=== PATIENT | female | born 1970 | race Caucasian/White ===

== ENCOUNTER 2024-09-09 13:54 | Emergency (ER) | payer SELFPAY ==
[~2024-09-09] VITALS: Ht 165.1 cm; Wt 61.2 kg
[2024-09-09] MEDS: LIDOCAINE HCL 1% 20 ML VIAL INJ ONE (15:05)
--- NOTE | 2024-09-09 15:53 | HMCIMG ---
EXAM: CR right ankle, 3 View. CLINICAL HISTORY: r/o fb COMPARISON: None provided. FINDINGS: BONES: No acute fracture or aggressive appearing osseous lesion. JOINTS: The joint spaces appear within normal limits. No dislocation. No radiographic evidence of a joint effusion. SOFT TISSUES: Posterior soft tissue laceration. Abnormal soft tissue attenuation stranding pre-Achilles fat pad le. IMPRESSION: 1. No acute osseous injury. 2. Posterior soft tissue laceration with pre-Achilles fat pad stranding. Achilles tendon pathology of concern /[place]
[2024-09-09] MEDS ORDERED: SULF1TAB42 PO (16:19)
--- NOTE | 2024-09-09 16:21 | ERN ---
General Chief Complaint: Laceration/Avulsion Stated Complaint: LACERATION TO LEFT ANKLE Time Seen by MD: 13:58 Time Seen by Midlevel: 13:58 Source: patient History of Present Illness Initial Comments Patient is a 54-year-old female presenting to the emergency department for evaluation of a laceration to her left ankle that occurred just prior to arrival. Tetanus vaccination is not up-to-date. Allergies: Coded Allergies: Penicillins (Unverified Allergy, Unknown, 09/09/24) Home Meds Active Scripts Sulfamethoxazole/Trimethoprim (Bactrim Ds Tablet) 800 Mg-160 Mg Tablet, 1 TAB PO BID for 7 Days, #14 TAB 0 Refills Prov:ALEKSANDRA STARR 09/09/24 Past Medical History Past Medical History: No Pertinent History Past Surgical History: None ROS Dictation CONSTITUTIONAL: Negative except for HPI HEAD/FACE: Negative except for HPI EENT: Negative except for HPI RESPIRATORY: Negative except for HPI GASTROINTESTINAL/ABDOMINAL: Negative except for HPI GENITOURINARY: Negative except for HPI MUSCULOSKELETAL: Negative except for HPI INTEGUMENTARY: Negative except for HPI NEUROLOGICAL/PSYCH: Negative except for HPI HEMATOLOGIC/LYMPHATIC: Negative except for HPI All Systems Negative, Except as noted above. 13 point review of systems assessed and all negative except for above. Physical Exam Physical Exam Dictation PHYSICAL EXAM: GENERAL: alert,, awake oriented x 3 HEENT: EOMI, Sclera non icteric, moist mucosa NECK: Supple, no JVD, trachea midline LUNGS: Clear breath sounds bilaterally. No wheezes HEART: Regular rate and rhythm. Normal S1 and S2, without murmurs ABD: Abdomen soft, nontender. Bowel sounds present EXT: No clubbing or cyanosis, NEURO: Alert and oriented to person, follows commands SKIN: 15cm linear laceration extending from the medial malleolus through the achiles tendon and ending in the lateral malleolus MDM MDM: 54-year-old female presenting to the ER with a left ankle laceration. On examination in the laceration extends from the medial to lateral malleolus any U shaped pattern going through the Achilles tendon. However the Achilles tendon is intact. Patient has full range motion of her left ankle. X-ray was performed which does not reveal any acute fracture or retained foreign body. Tetanus vaccination was administered in the emergency department. Laceration was successfully repaired with 16 simple interrupted sutures. Patient was discharged home with oral antibiotics for further treatment. Strict return precautions given Differential diagnosis: Laceration, tendon repair, retained foreign body There are no social concerns with this patient. Prescription drug management Prescriptions will include: Medical management and examination interpretation discussions were had by me with other qualified healthcare professionals as indicated for the patient's care. ED Course Orders Procedure Category Date Status Time *Nursing CPOE 09/09/24 Transmitted Communication: 14:02 Ankle Comp 3vws Lt RAD 09/09/24 Resulted 14:19 Tetanus,Diphtheria PHA 09/09/24 Complete Tox [Adult] (Diphther 14:30 Laceration Tray Set CPOE 09/09/24 Transmitted Up (Er) 14:19 Lidocaine Hcl 1% 20ml PHA 09/09/24 Complete Vial (Lidocaine Hc 14:30 Crutches W/Training CPOE 09/09/24 Transmitted (Er) 16:21 Current Medications Medications (Trade) Dose Ordered Sig/Kael Route PRN Reason Start Time Stop Time Status Last Admin Dose Admin Lidocaine HCl (Lidocaine HCl 1% 20ml Vial) ONCE ONCE INJ 09/09/24 14:30 09/09/24 14:31 DC 09/09/24 15:05 Tetanus/ Diphtheria Toxoids Adsorbed (DiphthERIA-teTANUS TOXOID [ADULT]/ DECAVAC) 0.5 ml ONCE ONCE IM 09/09/24 14:30 09/09/24 14:31 DC 09/09/24 15:07 Vital Signs Date Time Temp Pulse Resp B/P (MAP) Pulse Ox O2 Delivery O2 Flow Rate FiO2 09/09/24 16:31 98.6 82 16 142/76 96 Room Air* 0 21 09/09/24 14:11 98.6 88 16 167/97 96 Room Air* 0 09/09/24 13:56 98.6 88 16 167/97 96 Room Air 0 Procedure Dictation Procedure Name: Laceration Repair Indication: Reduce risk of infection Location: Left ankle,15 cm in length Pre-Procedure Diagnosis: Laceration Post-Procedure Diagnosis: Repaired Laceration Informed consent was obtained before procedure started. PROCEDURE: The appropriate timeout was taken. The area was prepped and draped in the usual sterile fashion. Local anesthesia was achieved using 10cc of Lidocaine 1% without epinephrine. The wound was copiously irrigated. 16 3-0 Ethilon simple interrupted sutures were placed. Estimated blood loss was less than 0.5 mL. A dressing was applied to the area and anticipatory guidance, as well as standard post-procedure care, was explained. Return precautions are given. The patient tolerated the procedure well without complications. Follow-up visit set for suture removal and evaluation of the laceration. DX & DISP Disposition: Discharge Departure Impression: Primary Impression: Laceration of left ankle Condition: Stable Scripts Sulfamethoxazole/Trimethoprim (Bactrim Ds Tablet) 800 Mg-160 Mg Tablet 1 TAB PO BID for 7 Days, #14 TAB 0 Refills Prov: ALEKSANDRA STARR 09/09/24 Additional Instructions: Your laceration was successfully repaired with 16 sutures. These will need to be removed in 10 days. If you notice any signs of infection please return to the ER for further evaluation. I have given you an oral antibiotic for outpatie nt management. Please follow up with your primary care doctor in 2-3 days for repeat evaluation. Referrals: MOISÉS GALVEZ MD (PCP) I have reviewed the case, and I agree with, Diagnosis and Plan I performed the substantive portion of the visit. I have reviewed and personally made and approve the management plan that is documented in the note by myself or the STUART. I acknowledge for responsibility for the patient's management plan. ALEKSANDRA STARR Sep 09, 2024 16:21
--- NOTE | 2024-09-09 16:23 | NUR ---
15 CM LAC REPAIRED W/ 16 STITCHES, WOUND DRESSED, PT TOLERATED WELL. PT EDUCATED ON CRUTCH USE
[2024-09-09 16:31] VITALS: BP 142/76; PULSE 82; RESP 16; TEMP 98.6; O2SAT 96
== END 2024-09-09 16:45 | disposition home or self-care (01) ==
LOC: EDH 13:54
DX: S91.012A Laceration without foreign body, left ankle, initial encounter (principal); Z88.0 Allergy status to penicillin; Z79.899 Other long term (current) drug therapy; X58.XXXA Exposure to other specified factors, initial encounter; Y93.89 Activity, other specified; Y92.89 Other specified places as the place of occurrence of the external cause; Y99.8 Other external cause status
CPT/HCPCS: 12005; 73610; 90471; 90714; 99283

== ENCOUNTER 2024-09-23 16:06 | Emergency (ER) | payer SELFPAY ==
[~2024-09-23] VITALS: Ht 165.1 cm; Wt 59.0 kg
[~2024-09-23 16:06] MED LIST: SULF1TAB42 PO
--- NOTE | 2024-09-23 18:09 | ERN ---
ED Note History of Present Illness Stated Complaint: SUTURE REMOVAL Chief Complaint: Suture/Staple Removal Time Seen by MD: 17:19 Time Seen by Midlevel: 17:19 Dictation: The patient is a 54-year-old female with history of left surgery who presents to the emergency department for suture removal. Patient had 16 sutures done to posterior left ankle on 09/09/2024. Patient denies any fever any complications. Allergies: Coded Allergies: Penicillins (Unverified Allergy, Unknown, 09/09/24) Home Meds Active Scripts Sulfamethoxazole/Trimethoprim (Bactrim Ds Tablet) 800 Mg-160 Mg Tablet, 1 TAB PO BID for 7 Days, #14 TAB 0 Refills Prov:ALEKSANDRA STARR 09/09/24 Past Medical History Past Medical History: No Pertinent History Additional Past Medical Hx: denies pmhx Surgical History: Other Surgical History Other: lt elbow sx RN Note Reviewed/Agreed w/PFSH: Yes Review of System Dictation Constitutional: Negative for fever,chills, and weight loss Eyes: Negative for injury, pain,redness, and discharge ENT: Negative for injury,pain or swelling Cardiovascular: Negative for chest pain, palpitations, and edema Respiratory: Negative for shortness of breath, cough, and wheezing, Abdomen/GI: Negative for abdominal pain, nausea, vomiting, diarrhea, and constipation Back: Negative for injury and pain : Negative for injury, bleeding and discharge MS/Extremity: Negative for injury and deformity Skin: Negative for rash, and discoloration positive for laceration Neuro: Negative for headache, weakness, numbness, tingling, and seizure Psych: Negative for suicide ideation, homicidal ideation, and hallucinations Initial Vital Sign VS Vital Signs Date Time Temp Pulse Resp B/P (MAP) Pulse Ox O2 Delivery O2 Flow Rate FiO2 09/23/24 16:09 98.4 106 16 160/99 97 Room Air 0 09/23/24 16:12 21 Physical Exam Dictation Vital Signs reviewed General Appearance: Alert, oriented x 3, no acute distress, well developed, nourished. Head and Face: non-traumatic. Eyes: PERRL, pink conjunctivas, eyelid no trauma, anterior chamber with arcus senilis. Ears: Pinnas intact and no signs of trauma or erythema ear canals clear and no discharge TM no erythema Nose: No discharge, no bleeding. Oropharynx: Mouth normal, tongue pink. pharynx clear,no erythema, tonsils no exudates, no abscesses noted, mucous membrane moist Neck: Supple, non-tender, no thyromegaly, no masses, no JVD, no bruits Breast:Deferred Chest:No tenderness, no crepitus, no paradoxical movement, no retractions Lungs:Clear, well-ventilated, symmetric, no rales, no wheezing, no rhonchi, no stridor, good breath sounds bilaterally Heart: Regular rate, regular rhythm, no murmur, no gallops Vascular: no peripheral edema, Abdomen: Soft, positive bowel sounds, nondistended, no guarding, nontender, no rebound, no masses no hepatomegaly, no splenomegaly, no Adamson's sign, no hernias. Rectal: Deferred Genital: Deferred Neurological: Normal speech, motor function intact, sensory function intact Musculoskeletal: Neck nontender, full range of motion, back nontender, full range of motion, Extremities: nontender, full range of motion Skin: Color pink, dry, no turgor, no rash, no abrasions, no contusions. Mild swelling and erythema to left ankle, [address] Lymphatic: Deferred Results (Laboratory/Radiology) Labs Reviewed?: Yes ED Course ED Course Vital Signs Date Time Temp Pulse Resp B/P (MAP) Pulse Ox O2 Delivery O2 Flow Rate FiO2 09/23/24 16:12 98.4 106 16 160/99 97 Room Air* 0 21 09/23/24 16:09 98.4 106 16 160/99 97 Room Air 0 Medical Decision Making MDM The patient is a 54-year-old female with history of left surgery who presents to the emergency department for suture removal. Patient had 16 sutures done to posterior left ankle on 09/09/2024. Patient denies any fever any complications. Sutures were removed. Patient tolerated procedure well. No signs of abnormal drainage. Patient was stable vital signs we will be discharged to follow up with PCP. Differential diagnosis: Cellulitis, suture removal encounter, laceration Need for hospitalization: Patient does not meet criteria for hospitalization. There are no social concerns with this patient. DX & DISP Disposition: Discharge Departure Impression: Primary Impression: Encounter for removal of sutures Condition: Stable Additional Instructions: Please follow up with your primary doctor in 1-2 days. Continue to keep wound clean and dry. FOLLOW-UP WITH PRIMARY CARE PROVIDER IN 1 TO 2 DAYS. TAKE MEDICATIONS DIRECTED HERE IN THE EMERGENCY ROOM. OKAY TO CONTINUE HOME MEDICATIONS UNLESS OTHERWISE DISCUSSED DURING YOUR VISIT IN THE EMERGENCY ROOM TODAY. RETURN TO YOUR NEAREST EMERGENCY ROOM IF SYMPTOMS WORSEN OR IF THERE IS NO IMPROVEMENT. CALL 911 IF YOU NEED IMMEDIATE ASSISTANCE. TAKE TYLENOL [id number] NEEDED AND IF NO CONTRAINDICATIONS ARE PRESENT. INCREASE ORAL HYDRATION. A WOUND CULTURE OR URINE CULTURE WAS ORDERED HERE IN THE EMERGENCY ROOM DEPARTMENT PLEASE FOLLOW-UP WITH PRIMARY CARE PROVIDER AND ADVISE THEM TO GET REPEAT PORTS FROM OUR FACILITY. IF YOU HAD ANY SAM WRAP/SPLINTS THAT WERE APPLIED HERE, PLEASE DO NOT REMOVE THEM UNTIL YOU SEE YOUR PRIMARY CARE OR SPECIALTY. Referrals: SELF,REFERRAL (PCP) Time of Disposition: 18:09 I have reviewed the case, and I agree with, Diagnosis and Plan DANA PLEITEZ Sep 23, 2024 18:09
--- NOTE | 2024-09-23 18:15 | NUR ---
SUTURES REMOVED WOUND CLEAN DRY AND INTACT
[2024-09-23 18:17] VITALS: BP 148/85; PULSE 100; RESP 16; TEMP 98.4; O2SAT 97
== END 2024-09-23 18:24 | disposition home or self-care (01) ==
LOC: EDH 16:06
DX: S91.012D Laceration without foreign body, left ankle, subsequent encounter (principal); Z88.0 Allergy status to penicillin; X58.XXXD Exposure to other specified factors, subsequent encounter
CPT/HCPCS: 99281